=== PATIENT | female | born 1955 | race Caucasian/White ===

== ENCOUNTER 2017-01-09 14:13 | Emergency (ER) | payer BC, OTHER ==
[2017-01-09 16:54] VITALS: BP 141/84
[2017-01-09] MEDS ORDERED: guaiFENesin/CODIEN 100MG-10MG* 5 ML UDC PO ONE (17:09)
[2017-01-09] MEDS ORDERED: Albuterol HFA INHALER* 8 gm MDI INH ONE (17:10)
--- NOTE | 2017-01-09 17:14 | UC ---
Respiratory Complaint HPI - HPI Summary HPI Summary: patient has had sore throat and headache, has progressed to coughing fits and sob. - History of Current Complaint Chief Complaint: UCGeneralIllness Stated Complaint: RESPIRATORY COMPLAINT Time Seen by Provider: 01/09/17 17:03 Hx Obtained From: Patient ?: No Onset/Duration: Sudden Onset, Lasting Days Timing: Constant Severity Initially: Moderate Severity Currently: Moderate Pain Intensity: 6 Pain Scale Used: 0-10 Numeric Character: Cough: Nonproductive Aggravating Factors: Exertion, Deep Breaths, Recumbent Position Alleviating Factors: Nothing Associated Signs And Symptoms: Positive: Dyspnea, Wheezing, URI - Risk Factors Pulmonary Embolism Risk Factors: Negative Cardiac Risk Factors: Negative Pseudomonas Risk Factors: Negative - Allergies/Home Medications Allergies/Adverse Reactions: Allergies Allergy/AdvReac Type Severity Reaction Status Date / Time No Known Allergies Allergy Verified 01/09/17 16:53 Home Medications: Home Medications [id number] [Coricidin Hbp Day & Night] 2 cap PO DAILY PRN [History Confirmed 01/09/17] PMH/Surg Hx/FS Hx/Imm Hx Previously Healthy: Yes Endocrine History Of: Reports: Thyroid Disease - Surgical History Surgical History: None - Family History Known Family History: Negative: Cardiac Disease, Hypertension - Social History Alcohol Use: Occasionally Substance Use Type: None Smoking Status (MU): Never Smoked Tobacco - Immunization History Most Recent Influenza Vaccination: 07/2014 Review of Systems Constitutional: Fatigue Skin: Negative Eyes: Negative ENT: Sore Throat, Nasal Discharge Respiratory: Shortness Of Breath, Cough Cardiovascular: Negative Gastrointestinal: Negative Genitourinary: Negative Motor: Negative Neurovascular: Negative Musculoskeletal: Negative Neurological: Headache Psychological: Negative All Other Systems Reviewed And Are Negative: Yes Physical Exam Triage Information Reviewed: Yes Appearance: Well-Nourished, Ill-Appearing, Pain Distress Vital Signs: Initial Vital Signs Temp 98.6 F 01/09/17 16:46 Pulse 99 01/09/17 16:46 Resp 16 01/09/17 16:46 BP 141/84 01/09/17 16:46 Pulse Ox 97 01/09/17 16:46 Vital Signs Reviewed: Yes Eye Exam: Normal Eyes: Positive: Conjunctiva Clear ENT Exam: Normal ENT: Positive: Hearing grossly normal, Pharyngeal erythema, Nasal congestion, Nasal drainage, TMs normal, Tonsillar swelling Dental Exam: Normal Neck exam: Normal Neck: Positive: Supple, Nontender, No Lymphadenopathy Respiratory Exam: Normal Respiratory: Positive: Chest non-tender, Rhonchi, Wheezing, Inspiration, Other: - bronchospastic cough Cardiovascular Exam: Normal Cardiovascular: Positive: RRR, No Murmur, Pulses Normal Abdominal Exam: Normal Abdomen Description: Positive: Nontender, No Organomegaly, Soft Bowel Sounds: Positive: Present Musculoskeletal Exam: Normal Musculoskeletal: Positive: Strength Intact, ROM Intact, No Edema Neurological Exam: Normal Neurological: Positive: Alert, Muscle Tone Normal Psychological Exam: Normal Skin Exam: Normal UC Diagnostic Evaluation - Laboratory O2 Sat by Pulse Oximetry: 97 Respiratory Course/Dx - Course Course Of Treatment: hx obtained, exam performed, meds given and prescribed. FLU swab negative - Differential Dx/Diagnosis Differential Diagnosis/HQI/PQRI: Asthma, Bronchitis, Influenza, Laryngitis, Sinusitis Provider Diagnoses: bronchitis Discharge - Discharge Plan Condition: Stable Disposition: HOME Patient Education Materials: Acute Bronchitis (ED) Additional Instructions: take the medications as prescribed. get plenty of rest and increase your fluid intake. follow up with any worsening symptoms.
== END 2017-01-09 17:46 | disposition home or self-care (01) ==
LOC: UCCORT 14:13
DX: J20.9 Acute bronchitis, unspecified (principal); E07.9 Disorder of thyroid, unspecified
CPT/HCPCS: 87502; 99213; A9270-GY; G0463

== ENCOUNTER 2019-06-07 19:15 | Emergency (ER) | payer BC, OTHER ==
[2019-06-07 19:37] VITALS: BP 136/82
--- NOTE | 2019-06-07 20:01 | UC ---
Laceration HPI - HPI Summary HPI Summary: Pt presents with c/o laceration to lateral right knee that occurred today at ~ 1500. Pt was scraping paint and she scraped her knee. Pt reports that she cleansed wound at home with hydrogen peroxide, soap and water and hydrogen peroxide again. She put a bandaid on wound and noticed that laceration was still bleeding at 1900. - History Of Current Complaint Chief Complaint: UCLaceration Stated Complaint: LACERATION RIGHT KNEE Time Seen by Provider: 06/07/19 19:36 Hx Obtained From: Patient Laceration Location: Knee - right Mechanism Of Injury: Sharp Trauma Onset/Duration: Sudden Onset Severity: Mild Pain Intensity: 3 Aggravating Factors: Position, Movement - Allergies/Home Medications Allergies/Adverse Reactions: Allergies Allergy/AdvReac Type Severity Reaction Status Date / Time No Known Allergies Allergy Verified 06/07/19 19:31 Home Medications: Home Medications Darifenacin (NF) [Enablex (NF)] 15 mg PO DAILY 06/07/19 [History Confirmed 06/07] Levothyroxine TAB* [Synthroid TAB*] 100 mcg PO DAILY 06/07/19 [History Confirmed 06/07/19] Montelukast Sodium TAB* [Singulair TAB*] 10 mg PO DAILY 06/07/19 [History Confirmed 06/07/19] PMH/Surg Hx/FS Hx/Imm Hx Previously Healthy: Yes Endocrine History: Thyroid Disease - Surgical History Surgical History: None - Family History Known Family History: Negative: Cardiac Disease, Hypertension - Social History Occupation: Retired Lives: With Family Alcohol Use: Occasionally Substance Use Type: None Smoking Status (MU): Never Smoked Tobacco Have You Smoked in the Last Year: No - Immunization History Most Recent Influenza Vaccination: 07/2014 Vaccination Up to Date: Yes Review of Systems All Other Systems Reviewed And Are Negative: Yes Constitutional: Positive: Negative Skin: Positive: Other - laceration to right knee Eyes: Positive: Negative ENT: Positive: Negative Respiratory: Positive: Negative Cardiovascular: Positive: Negative Gastrointestinal: Positive: Negative Genitourinary: Positive: Negative Motor: Positive: Negative Neurovascular: Positive: Negative Musculoskeletal: Positive: Myalgia - at laceration site Neurological: Positive: Negative Psychological: Positive: Negative Is Patient Immunocompromised?: No Physical Exam Triage Information Reviewed: Yes Appearance: Pain Distress Vital Signs: Initial Vital Signs Temp 97.2 F 06/07/19 19:33 Pulse 89 06/07/19 19:33 Resp 16 06/07/19 19:33 BP 136/82 06/07/19 19:33 Pulse Ox 97 06/07/19 19:33 Vital Signs Reviewed: Yes Eye Exam: Normal ENT: Positive: Hearing grossly normal Respiratory: Positive: No respiratory distress Musculoskeletal Exam: Normal Musculoskeletal: Positive: Strength Intact, ROM Intact Neurological Exam: Normal Psychological Exam: Normal Skin Exam: Other - laceration right knee Laceration Repair - Laceration Repair 1 Description: Linear Laceration Size After Repair: Length (cm) - 0.5, Width (mm) - 2, Depth (mm) - 3 Modified For Repair: No Cleansing Completed Via Routine Prep: Yes Irrigation With Pressure Irrigation Device: Yes Closure Material: Skin Adhesive, SteriStrips Closure Method: Single Layer Suture Of: Skin Laceration Course/Dx - Differential Dx - Laceration/Wound Differental Diagnoses: Laceration - Diagnosis Provider Diagnosis: Laceration of right knee without complication Discharge - Sign-Out/Discharge Documenting (check all that apply): Patient Departure All imaging exams completed and their final reports reviewed: No Studies - Discharge Plan Condition: Stable Disposition: HOME Patient Education Materials: Skin Adhesive Care (ED), Laceration (ED) Referrals: Deborah Jesus MD [Primary Care Provider] - - Billing Disposition and Condition Condition: STABLE Disposition: Home
== END 2019-06-07 20:20 | disposition home or self-care (01) ==
LOC: UCCORT 19:15
DX: S81.011A Laceration without foreign body, right knee, initial encounter (principal); Y93.89 Activity, other specified; Y92.9 Unspecified place or not applicable; W27.8XXA Contact with other nonpowered hand tool, initial encounter; E07.9 Disorder of thyroid, unspecified
CPT/HCPCS: 12001; 99211; G0463